=== PATIENT | female | born 1970 | race African-American/Black ===

== ENCOUNTER 2017-03-19 11:48 | Emergency (ER) | payer SELFPAY ==
[~2017-03-19] VITALS: Ht 157.5 cm; Wt 130.2 kg
[2017-03-19 12:15] VITALS: BP 140/72
[2017-03-19] MEDS ORDERED: Tetanus/Diptheria/Pertussis Vaccine 0.5ml Syr IM ONE (12:30)
[2017-03-19] MEDS ORDERED: Lidocaine 1% 10mg/ml/Epi 0.005mg/ml 30ml vial INJ ONE (12:30)
[2017-03-19] MEDS ORDERED: Bacitracin Oint UD TOPIC ONE ×2 (12:53→13:00)
[2017-03-19] MEDS ORDERED: BACITRACIN-P28.35 GM TP (12:58)
[2017-03-19] MEDS ORDERED: CEPHALEXIN500 MG ORAL (12:58)
--- NOTE | 2017-03-19 12:58 | Emergency Room Report ---
History of Present Illness General Chief Complaint: Laceration Source: Patient Present Illness HPI 46-year-old female presents emergency department complaining of laceration to the medial left calf times one day. Patient states she was taking out the trash and she realized that she accidentally cut herself on something that was sharp poking through the garbage bag. Patient denies pain at this time patient reports bleeding denies taking blood thinning medications. She does not know when her last tetanus vaccination was. Denies numbness tingling or loss of sensation or gross motor movements of the extremities, incontinence of bowel or bladder. Denies CP, Palpitations, LOC, AMS, dizziness, Changes in Vision, Sensation, paresthesias, or a sudden severe headache. Allergies: Coded Allergies: No Known Allergies (Unverified , 03/19/17) Patient History Past Medical History: see triage record Past Surgical History: none Pertinent Family History: none Now: No Reviewed Nursing Documentation: PMH: Agreed, PSxH: Agreed Nursing Documentation-PMH Past Medical History: No Stated History Review of Systems All Other Systems: negative except mentioned in HPI Physical Exam Vital Signs Date Time Temp Pulse Resp B/P Pulse Ox O2 Delivery O2 Flow Rate FiO2 03/19/17 11:54 97.9 62 14 140/72 99 Room Air Sp02 EP Interpretation: reviewed, normal General Appearance: no apparent distress, alert, GCS 15, non-toxic Head: normocephalic, atraumatic Eyes: bilateral eye PERRL, bilateral eye normal inspection ENT: hearing grossly normal, normal pharynx, no angioedema, normal voice Neck: full range of motion, supple/symm/no masses Respiratory: lungs clear, normal breath sounds, speaking full sentences Cardiovascular #1: regular rate, rhythm, no edema Rectal: deferred Musculoskeletal: back normal, gait/station normal, normal range of motion, non- tender Neurologic: alert, oriented x3, responsive, motor strength/tone normal, sensory intact, speech normal Psychiatric: judgement/insight normal, memory normal, mood/affect normal Skin: normal color, no rash, warm/dry, well hydrated, laceration - medial left calf laceration approx 3 inches in length Procedures Laceration/Wound Repair Laceration/Wound Repair : Consent: Verbal Wound Location: lower extremity - medial left calf Wound's Depth, Shape: superficial Wound Length (cm): 7 Wound Explored: clean Irrigated w/ Saline (ccs): 1000 Anesthesia: Lidocaine w/ Epi Volume Anesthetic (ccs): 6 Wound Repaired With: magaly Number of Sutures: 14 Sterile Dressing Applied?: Yes Splint Applied?: No Sling Applied?: No Patient Tolerated: Well Complications: None Medical Decision Making PA Attestation Dr. Scott is my supervising Physician whom patient management has been discussed with. Diagnostic Impression: Primary Impression: Laceration ER Course Pt. presents to the ED c/o laceration to Left medial calf Ddx considered but are not limited to laceration, tendon injury, cellulitis, amputation Vital signs: are WNL, pt. is afebrile H&PE are most consistent with: medial left calf laceration approx 3 inches in length ORDERS: none required at this time, the diagnosis is clinical ED INTERVENTIONS: -Tetanus vaccine was administered as pt. vaccination status was unknown. - The wound was copiously irrigated with normal saline, and explored for foreign body for which no FB was found. - pt. is anesthetized with 1%lidocaine w. epi. - The wound was approximated and closed using 14 Magaly. -Bacitracin and sterile dressing is applied. -Pt is provided with a pair of crutches Discussed with patient: That we make every effort to approximate the laceration as best as we can so that scarring will be as cosmetically pleasing as possible with our limited cosmetic skill set in the Emergency dept. Regardless of our best efforts there will be scarring after laceration repair. The extent of scarring is unknown at this time. DISCHARGE: At this time pt. is stable for d/c to home. Will provide printed patient care instructions, and any necessary prescriptions. Care plan and follow up instructions have been discussed with the patient prior to discharge. Last Vital Signs Date Time Temp Pulse Resp B/P Pulse Ox O2 Delivery O2 Flow Rate FiO2 03/19/17 11:54 97.9 62 14 140/72 99 Room Air Disposition: HOME, SELF-CARE Condition: Stable Scripts Bacitracin/Polymyxin B Sulfate (BACITRACIN-POLYMYXIN OINTMENT) 28.35 Gm Oint...g. 1 APPLIC TP BID, #28.3 GM Prov: Quiana Roe P.AStephanie 03/19/17 Cephalexin* (KEFLEX*) 500 Mg Capsule 500 MG ORAL EVERY 12 HOURS for 7 Days, #14 CAP 0 Refills Prov: Quiana Roe 03/19/17 Referrals: NOT CHOSEN IPA/MD,REFERRING (PCP) Patient Instructions: Laceration Care, Adult Additional Instructions: Take medications as directed. Follow up with PCP in 3-5 days Staple removal in 10 Days *8 Return sooner to ED if new symptoms occur, or current symptoms become worse. - Please note that this Emergency Department Report was dictated using [email or web address] associate technology software, occasionally this can lead to erroneous entry secondary to interpretation by the dictation equipment. Quiana Roe Mar 19, 2017 12:58
[2017-03-19 13:06] VITALS: BP 140/72
== END 2017-03-19 13:06 | disposition home or self-care (01) ==
LOC: EMR 12:25
DX: S81.812A Laceration without foreign body, left lower leg, initial encounter (principal); Z23 Encounter for immunization; W45.8XXA Other foreign body or object entering through skin, initial encounter; Y93.9 Activity, unspecified; Y92.9 Unspecified place or not applicable
CPT/HCPCS: 90471; 90715; 96372